=== PATIENT | female | born 1960 | race Two or more races ===

== ENCOUNTER 2024-01-08 16:27 | Emergency (ER) | payer SELFPAY ==
[~2024-01-08] VITALS: Ht 160 cm; Wt 63.6 kg
[2024-01-08 17:33] VITALS: PULSE 68; RESP 20; O2SAT 98
[2024-01-08] MEDS: fentaNYL CITRATE 100 MCG/2 ML VL IV ONE (17:38)
[2024-01-08] MEDS: KETAMINE 50mg/ML 10ml Vial (500mg/10ml) IV ONE (18:27)
[2024-01-08 19:19] VITALS: BP 115/67; PULSE 89; RESP 10; TEMP 98.2; O2SAT 96
== END 2024-01-08 19:39 | disposition home or self-care (01) ==
LOC: ER 16:27 → EDBD 16:27 → ER 19:39
DX: M24.412 Recurrent dislocation, left shoulder (principal); S90.32XA Contusion of left foot, initial encounter; X50.1XXA Overexertion from prolonged static or awkward postures, initial encounter; Y93.89 Activity, other specified; Y92.89 Other specified places as the place of occurrence of the external cause; Y99.8 Other external cause status
CPT/HCPCS: 23650; 73030; 73620; 96374; 99152; 99153; 99285; J3010; 96375

== ENCOUNTER 2025-04-16 22:57 | Emergency (ER) | payer BC, OTHER ==
[~2025-04-16] VITALS: Ht 157.5 cm; Wt 67.8 kg
[2025-04-16 23:55] LABS: Hematocrit 40.4 % (36.0-46.0); Hemoglobin 13.6 g/dL (12.2-16.2); Mean Corpuscular Hemoglobin 31.7 pg (28.0-32.0); Mean Corpuscular Volume 93.9 fL (80.0-100.0); Nucleated Red Blood Cells % 0.1 %
[2025-04-17 00:06] LABS: Alanine Aminotransferase 24 U/L (7-40); Albumin 4.3 g/dL (3.2-4.8); Alkaline Phosphatase 77 U/L (46-116); Anion Gap 9 (5-15); BUN/Creatinine Ratio 20.8 (10.0-20.0); Blood Urea Nitrogen 15 mg/dL (9-23); Calcium 9.5 mg/dL (8.7-10.4); Carbon Dioxide 25 mmol/L (20-31); Chloride 106 mmol/L (98-107); Potassium 3.9 mmol/L (3.5-5.1); Sodium 140 mmol/L (136-145); Total Protein 7.1 g/dL (5.7-8.2)
[2025-04-17 00:08] LABS: Bilirubin, Total 0.2 mg/dL (0.2-1.0); Glucose 111 mg/dL (74-106)
--- NOTE | 2025-04-17 00:09 | ED.PDOC ---
History of Present Illness HPI Comments 64 y/o F presents with c/c of worsening dizziness and left ankle pain and swelling x1 month. Pertinent history of AFib and tachycardia and aspirin use. Denial of any recent trauma or injuries. Dizziness provoked with standing. No chest pain, shortness of breath, headache, or nausea or vomiting. Chief Complaint: Dizziness Time Seen by MD: 23:55 Primary Care Provider: MARCO ANTONIO Allergies: Coded Allergies: No Known Drug Allergy (Verified Allergy, Unknown, 01/08/24) Information Source: Patient Mode of Arrival: Ambulatory Severity: Moderate Timing: Weeks Duration: Since onset Prehospital treatment: None Past Medical History PAST MEDICAL HISTORY: AFIB Past Medical History (Other): tachycardia Surgical History: Denies all surgeries [employer] History: No Pertinent [employer] History All Other Systems: Reviewed and Negative (As per HPI) Physical Exam General Appearance: No Apparent Distress, Normal HEENT: Normal ENT Inspection, Pharynx Normal, TMs Normal Neck: Full Range of Motion, Non-Tender, Normal, Normal Inspection Respiratory: Chest Non-Tender, Lungs Clear, No Accessory Muscle Use, No Respiratory Distress, Normal Breath Sounds Cardiovascular: No Edema, No JVD, No Murmur, No Gallop, Normal Peripheral Pulses, Regular Rate/Rhythm Breast Exam: Deferred Gastrointestinal: No Organomegaly, Non Tender, No Pulsatile Mass, Normal Bowel Sounds, Soft Genitalia: Deferred Pelvic: Deferred Rectal: Deferred Extremities: No calf tenderness, Normal capillary refill, Normal inspection, Normal range of motion, Non-tender, No pedal edema Musculoskeletal : Apperance: Normal Neurologic: Alert, loan servicing specialist II-XII nml as Tested, No Motor Deficits, Normal Affect, Normal Mood, No Sensory Deficits Cerebellar Function: Normal Reflexes: Normal Skin: Dry, Normal Color, Warm Lymphatic: No Adenopathy Was a procedure done? Was a procedure done?: No Differential Dx Considerations may include: vertigo, CVA/TIA, dehydration, electrolyte imbalance, among others X-Ray, Labs, Meds, VS Vital Signs Date Time Temp Pulse Resp B/P (MAP) Pulse Ox O2 Delivery O2 Flow Rate FiO2 04/17/25 02:20 77 04/17/25 02:18 98.4 77 18 149/85 (106) 95 98.4 04/16/25 22:59 97.4 82 16 144/107 96 97.4 Lab Test 04/16/25 23:39 Range/Units White Blood Count 7.5 4.4-10.8 10^3/uL Red Blood Count 4.30 4.0-5.20 10^6/uL Hemoglobin 13.6 12.2-16.2 g/dL Hematocrit 40.4 36.0-46.0 % Mean Corpuscular Volume 93.9 80.0-100.0 fL Mean Corpuscular Hemoglobin 31.7 28.0-32.0 pg Mean Corpuscular Hemoglobin Concent 33.7 32.0-36.0 g/dL Red Cell Distribution Width 14.2 11.8-14.3 % Platelet Count 374 140-450 10^3/uL Mean Platelet Volume 7.3 6.9-10.8 fL Neutrophils (%) (Auto) 52.4 37.0-80.0 % Lymphocytes (%) (Auto) 32.1 10.0-50.0 % Monocytes (%) (Auto) 7.7 0.0-12.0 % Eosinophils (%) (Auto) 6.8 0.0-7.0 % Basophils (%) (Auto) 1.0 0.0-2.0 % Neutrophils # (Auto) 4.0 1.6-8.6 10 ^3/uL Lymphocytes # (Auto) 2.4 0.4-5.4 10 ^3/uL Monocytes # (Auto) 0.6 0-1.3 10 ^3/uL Eosinophils # (Auto) 0.5 0-0.8 10 ^3/uL Basophils # (Auto) 0.1 0-0.2 10 ^3/uL Nucleated Red Blood Cells 0.1 % Sodium Level 140 136-145 mmol/L Potassium Level 3.9 3.5-5.1 mmol/L Chloride Level 106 98-107 mmol/L Carbon Dioxide Level 25 20-31 mmol/L Anion Gap 9 5-15 Blood Urea Nitrogen 15 9-23 mg/dL Creatinine 0.72 0.550-1.02 mg/dL Glomerular Filtration Rate Calc 92 >90 mL/min BUN/Creatinine Ratio 20.8 H 10.0-20.0 Serum Glucose 111 H 74-106 mg/dL Calcium Level 9.5 8.7-10.4 mg/dL Total Bilirubin 0.2 0.2-1.0 mg/dL Aspartate Amino Transferase (AST) 23 13-40 U/L Alanine Aminotransferase (ALT) 24 7-40 U/L Alkaline Phosphatase 77 46-116 U/L Troponin I High Sensitivity < 3 L </=34 ng/L B-Type Natriuretic Peptide 30.39 0-100 pg/mL Total Protein 7.1 5.7-8.2 g/dL Albumin 4.3 3.2-4.8 g/dL [place] [address] Ph: [phone] DIAGNOSTIC IMAGING Diagnostic Imaging Report : [id number] Signed PATIENT: BRYAN HUDDLESTON ACCT: [id number] UNIT: [id number] : 1960 LOC: ER ROOM / BED: / AGE / SEX: 64 / F ADM STATUS: REG ER SERVICE 30 ORDERING PHYSICIAN: BRIGID ANDERSEN MD PROCEDURE(s): LLDVT - LT Lower DVT REASON: swelling r/o DVT ORDER NUMBER(s): [id number], ACCESSION NUMBER(s): [id number] Left lower extremity venous duplex CLINICAL HISTORY: swelling r/o DVT COMPARISON: None TECHNIQUE: Duplex Doppler evaluation of the deep venous system of the left lower extremity from the common femoral vein to the popliteal vein including color Doppler and spectral/pulsed waveform analysis was performed. FINDINGS: The common femoral vein demonstrates appropriate compressibility and waveform variability. There is compressibility/patency of the great saphenous vein at the proximal thigh. The femoral vein demonstrates appropriate compressibility and waveform variability. The deep femoral vein demonstrates appropriate compressibility and waveform variability. The popliteal vein demonstrates appropriate compressibility and waveform variability. There is normal compressibility at the tibioperoneal trunk. IMPRESSION: 1. No left femoropopliteal venous thrombosis. ATED BY: AMNA ACEVES MD DICTATED DATE/TIME: 04/17/259 SIGNED BY: AMNA ACEVES MD SIGNED DATE/TIME: 04/17/259 CC: [address] [address] Ph: [phone] DIAGNOSTIC IMAGING Diagnostic Imaging Report : [id number] Signed PATIENT: BRYAN HUDDLESTON ACCT: [id number] UNIT: [id number] : 1960 LOC: ER ROOM / BED: / AGE / SEX: 64 / F ADM STATUS: REG ER SERVICE 233 ORDERING PHYSICIAN: BRIGID ANDERSEN MD PROCEDURE(s): LANK2 - L ANKLE 2 VIEW XRAY REASON: pain / swelling no trauma ORDER NUMBER(s): [id number], ACCESSION NUMBER(s): [id number] CLINICAL INDICATION: pain / swelling no trauma TECHNIQUE: XY L ANKLE 2 VIEW XRAY COMPARISON: XY L FOOT 2 VIEW XRAY on DOS: 01/08/24 FINDINGS/IMPRESSION: : There is no evidence of acute fracture or dislocation. Soft tissues are unremarkable. ATED BY: THIEN GALEANO MD DICTATED DATE/TIME: 04/17/2532 SIGNED BY: THIEN GALEANO MD SIGNED DATE/TIME: 04/17/2532 CC: Time of 1ST Reevaluation: 00:25 Reevaluation 1ST: Unchanged Patient Education/Counseling: Diagnosis, Treatment Family Education/Counseling: No Family Present SEPSIS Sepsis Screen Date sepsis recognized/suspect: Apr 16, 2025 Time Sepsis recognized/suspect: 2299 Recent Procedure: No On Antibiotic Therapy: No Respiratory Rate >20: No Heart Rate >90: No Temp<36 C (96.8 F) or >38.3 C: No SBP <90 or MAP <65 mmHG: No New Acute Mental Status Change: No Is the patient on CPAP, BIPAP,: No Physician Orders Electrocardigram (04/16/25 23:31) L Ankle 2 View Xray (04/16/25 23:31) Lt Lower Dvt (04/16/25 23:31) Vital Signs Date Time Temp Pulse Resp B/P (MAP) Pulse Ox O2 Delivery O2 Flow Rate FiO2 04/17/25 02:20 77 04/17/25 02:18 98.4 77 18 149/85 (106) 95 98.4 04/16/25 22:59 97.4 82 16 144/107 96 97.4 Laboratory Tests Test 04/16/25 23:39 White Blood Count 7.5 10^3/uL (4.4-10.8) Departure 1 Departure Time of Disposition: 02:00 Impression: Primary Impression: Left ankle pain Additional Impression: Dizziness Disposition: 01 HOME / SELF CARE / HOMELESS Condition: Stable Discharged With: Self Critical Care Note Critical Care Time?: No Stability Stability form required: No Heart Score Heart Score: Heart Score Response (Comments) Value History N/A 0 EKG N/A 0 Age N/A 0 Risk Factors N/A 0 Troponin N/A 0 Total 0 I personally scribed for BRIGID ANDERSEN MD ([email or web address]) on 04/17/25 at 00:09. Electronically submitted by Noe Ambriz ([email or web address]). I personally scribed for BRIGID ANDERSEN MD ([email or web address]) on 04/17/25 at 00:30. Electronically submitted by Noe Ambriz ([email or web address]). I personally scribed for BRIGID ANDERSEN MD ([email or web address]) on 04/17/25 at 00:48. Electronically submitted by Noe Ambriz ([email or web address]). BRIGID ANDERSEN MD Apr 17, 2025 00:09
--- NOTE | 2025-04-17 00:13 | DVH ---
Left lower extremity venous duplex CLINICAL HISTORY: swelling r/o DVT COMPARISON: None TECHNIQUE: Duplex Doppler evaluation of the deep venous system of the left lower extremity from the common femoral vein to the popliteal vein including color Doppler and spectral/pulsed waveform analysis was performed. FINDINGS: The common femoral vein demonstrates appropriate compressibility and waveform variability. There is compressibility/patency of the great saphenous vein at the proximal thigh. The femoral vein demonstrates appropriate compressibility and waveform variability. The deep femoral vein demonstrates appropriate compressibility and waveform variability. The popliteal vein demonstrates appropriate compressibility and waveform variability. There is normal compressibility at the tibioperoneal trunk. IMPRESSION: 1. No left femoropopliteal venous thrombosis.
--- NOTE | 2025-04-17 00:36 | DVH ---
CLINICAL INDICATION: pain / swelling no trauma TECHNIQUE: XY L ANKLE 2 VIEW XRAY COMPARISON: XY L FOOT 2 VIEW XRAY on DOS: 01/08/24 FINDINGS/IMPRESSION: : There is no evidence of acute fracture or dislocation. Soft tissues are unremarkable.
[2025-04-17 02:18] VITALS: BP 149/85; RESP 18; TEMP 98.4; O2SAT 95
[2025-04-17 02:20] VITALS: PULSE 77
== END 2025-04-17 02:40 | disposition home or self-care (01) ==
LOC: ER 22:57
DX: M25.572 Pain in left ankle and joints of left foot (principal); R42 Dizziness and giddiness; I48.91 Unspecified atrial fibrillation; Z86.718 Personal history of other venous thrombosis and embolism; Z79.899 Other long term (current) drug therapy
CPT/HCPCS: 36415; 73600; 80053; 83880; 84484; 85025; 93971